=== PATIENT | female | born 1955 | race Two or more races ===

== ENCOUNTER 2018-02-03 15:25 | Emergency (ER) | payer OTHER ==
[~2018-02-03] VITALS: Ht 157.5 cm; Wt 98.4 kg
[~2018-02-03 15:25] MED LIST: ALBUTEROL SULF8.5 GM INH; AUGMENTIN 875-1 EAC1 PO; CITALOPRAM HBR20 M1 PO; ENALAPRIL MALE2.5 MG PO; FLOVENT2 PUFFS INH; GLUCOPHAGE500 MG PO; IBUPROFEN600 MG PO; LEVOTHYROXINE75 MCG ORAL; NORCO 5-325 TA1 EACH ORAL; PRILOSEC10 MG PO; SYNTHROID75 MCG PO
[2018-02-03] MEDS ORDERED: ATORVASTATIN CA20 MG ORAL (15:33)
[2018-02-03 15:41] VITALS: BP 125/70
--- NOTE | 2018-02-03 15:42 | Emergency Room Report ---
History of Present Illness General Chief Complaint: Asthma Source: Patient Present Illness HPI Patient is a 62-year-old female presented after increased difficulty breathing. The patient gradual onset of symptoms. Patient was noted to have increased nonproductive cough.Patient had been noted to have prior history of asthma as well as diabetes. Patient had been doing well inhaler. Patient denies any vomiting or diarrhea. She reports reason traveled to [place]. She denies any leg pain or swelling. Allergies: Coded Allergies: MORPHINE (Verified Allergy, Mild, 08/17/12) Patient History Past Medical History: DM, asthma Last Menstrual Period: 9 yrs ago Reviewed Nursing Documentation: PMH: Agreed; PSxH: Agreed Nursing Documentation-PMH Past Medical History: No History, Except For Hx Cardiac Problems: Yes - hypothyroidism Hx Hypertension: Yes Hx Asthma: Yes Hx Diabetes: Yes Hx Cancer: No Hx Gastrointestinal Problems: Yes - acid reflux Hx Neurological Problems: Yes Hx Headaches: Yes Review of Systems All Other Systems: negative except mentioned in HPI Physical Exam Vital Signs Date Time Temp Pulse Resp B/P (MAP) Pulse Ox O2 Delivery O2 Flow Rate FiO2 02/03/18 15:28 97.9 70 18 120/68 95 Room Air 97.9 General Appearance: well appearing, no apparent distress, alert, GCS 15, obese Head: normocephalic, atraumatic ENT: normal voice, pharyngeal erythema Neck: full range of motion, supple Respiratory: no respiratory distress, speaking full sentences, wheezing Cardiovascular #1: normal inspection, regular rate, rhythm, no edema Gastrointestinal: normal inspection, normal bowel sounds, non tender, soft Musculoskeletal: normal inspection, back normal, no calf tenderness Neurologic: normal inspection, alert, oriented x3, responsive, life skills educator III-XII nml as tested, normal gait Psychiatric: mood/affect normal Skin: no rash Medical Decision Making Diagnostic Impression: Primary Impression: Asthma exacerbation ER Course The patient presented for cough and difficulty breathing.Differential diagnosis included but was not limited to bronchitis, pneumonia,Asthma exacerbation, myocardial infarction pulmonary embolism, pericarditis, asthma, foreign body. Patient has a benign exam and does not appear to require any further imaging or laboratory testing at this time. Patient is given breathing treatment as well as oral steroids. She was noted to have improvement in her symptoms.The patient is advised to follow up with primary care doctor in 1-2 days. Patient is advised to return if any worsening condition or if any changes in status that are concerning. This report is dictated with i[employer]umen film waxer software which may occasionally lead to discrepancies related to use of this software. EKG Diagnostic Results Rate: normal - 66 Rhythm: NSR ST Segments: no acute changes Last Vital Signs Date Time Temp Pulse Resp B/P (MAP) Pulse Ox O2 Delivery O2 Flow Rate FiO2 02/03/18 15:28 97.9 70 18 120/68 95 Room Air 97.9 Status: improved Disposition: HOME, SELF-CARE Condition: Stable Scripts Prednisone* (PREDNISONE*) 20 Mg Tablet 40 MG ORAL DAILY, #10 TAB Prov: Bryan Awan MD 02/03/18 Bryan Awan MD Feb 03, 2018 15:42
[2018-02-03] MEDS ORDERED: Albuterol/Ipratropium 3ml neb HHN ONE (15:45)
[2018-02-03] MEDS ORDERED: PREDNISONE20 MG ORAL (16:24)
[2018-02-03 16:45] VITALS: BP 125/70
== END 2018-02-03 20:34 | disposition home or self-care (01) ==
LOC: EMR 16:05
DX: J45.901 Unspecified asthma with (acute) exacerbation (principal); E11.9 Type 2 diabetes mellitus without complications; E03.9 Hypothyroidism, unspecified; I10 Essential (primary) hypertension; K21.9 Gastro-esophageal reflux disease without esophagitis; Z88.6 Allergy status to analgesic agent; E66.9 Obesity, unspecified; Z68.39 Body mass index [BMI] 39.0-39.9, adult
CPT/HCPCS: 93005; 94640; 94664; 99284; J7512; J7620

== ENCOUNTER 2018-02-10 22:08 | Emergency (ER) | payer OTHER ==
[~2018-02-10] VITALS: Ht 157.5 cm; Wt 98.9 kg
[~2018-02-10 22:08] MED LIST changes: +ATORVASTATIN CA20 MG ORAL; +PREDNISONE20 MG ORAL
--- NOTE | 2018-02-10 22:33 | Emergency Room Report ---
History of Present Illness General Chief Complaint: Upper Respiratory Illness Source: Patient Present Illness HPI Patient had recently returned from [place] about 7 days ago She presented to the ER as she was having continued cough and congestion she now reports increased nasal congestion and continued cough questionable subjective fevers and chills at home Denies any chest pain she was having some left upper back pain with the increased cough denies any vomiting or diarrhea denies any neck pain or photophobia Patient had previous history of asthma is also using her home inhalers Allergies: Coded Allergies: MORPHINE (Verified Allergy, Mild, 08/17/12) Patient History Past Medical History: see triage record Pertinent Family History: none Reviewed Nursing Documentation: PMH: Agreed; PSxH: Agreed Nursing Documentation-PMH Hx Cardiac Problems: Yes - hypothyroidism Hx Hypertension: Yes Hx Asthma: Yes Hx Diabetes: Yes Hx Cancer: No Hx Gastrointestinal Problems: Yes - acid reflux Hx Neurological Problems: Yes Hx Headaches: Yes Review of Systems All Other Systems: negative except mentioned in HPI Physical Exam Vital Signs Date Time Temp Pulse Resp B/P (MAP) Pulse Ox O2 Delivery O2 Flow Rate FiO2 02/10/18 22:12 98.2 75 20 127/69 95 Room Air 98.2 Sp02 EP Interpretation: reviewed, normal General Appearance: well appearing, no apparent distress Head: normocephalic, atraumatic Eyes: bilateral eye PERRL, bilateral eye EOMI ENT: hearing grossly normal, normal pharynx, TMs + canals normal, uvula midline Neck: full range of motion, supple, no meningismus, no bony tend Respiratory: lungs clear, normal breath sounds, no rhonchi, no respiratory distress, no retraction, no accessory muscle use Cardiovascular #1: normal peripheral pulses, regular rate, rhythm, no edema, no gallop, no JVD, no murmur Gastrointestinal: normal bowel sounds, non tender, soft, no mass, no organomegaly, non-distended, no guarding, no hernia, no pulsatile mass, no rebound Genitourinary: no CVA tenderness Musculoskeletal: normal inspection Neurologic: oriented x3, responsive, software licensing analyst III-XII nml as tested, motor strength/ tone normal, sensory intact Psychiatric: mood/affect normal Skin: normal color, no rash, warm/dry, palpation normal Lymphatic: normal inspection, no adenopathy Medical Decision Making Diagnostic Impression: Primary Impression: Atypical pneumonia ER Course Patient is a fairly complex patient with multiple differential to consideration including but not limited to cardiac cardiopulmonary and vascular emergencies Given that the patient's symptoms have been ongoing imaging study was obtained no obvious acute pathology Patient has clinical findings consistent with community-acquired pneumonia is placed on antibiotics and will have close outpatient follow-up Chest X-Ray Diagnostic Results Chest X-Ray Diagnostic Results : Chest X-Ray Ordered: Yes # of Views/Limited/Complete: 1 View Indication: Chest Pain EP Interpretation: Yes Interpretation: no consolidation, no effusion, no pneumothorax Impression: No acute disease Electronically Signed by: Priscilla Mera DO Last Vital Signs Date Time Temp Pulse Resp B/P (MAP) Pulse Ox O2 Delivery O2 Flow Rate FiO2 02/10/18 22:12 98.2 75 20 127/69 95 Room Air 98.2 Status: improved Disposition: HOME, SELF-CARE Condition: Improved Scripts Dextromethorphan Hb/Doxylamine (ROBITUSSIN NIGHTTIME COUGH DM) 237 Ml Liquid 10 ML PO QHS for 5 Days, ML Prov: Priscilla Mera DO 02/10/18 Azithromycin* (ZITHROMAX*) 250 Mg Tablet 250 MG ORAL DAILY, #6 TAB 0 Refills Take two tables once daily for 1 day, then one tablet once daily for 4 days. Prov: Priscilla Mera DO 02/10/18 Referrals: NOT CHOSEN IPA/MD,REFERRING (PCP) Additional Instructions: Patient is provided with the discharge instructions notified to follow up with primary doctor in the next 2-3 days otherwise return to the er with any worsening symptoms. Please note that this report is being documented using [employer] technology. This can lead to erroneous entry secondary to incorrect interpretation by the dictating instrument. Priscilla Mera DO Feb 10, 2018 22:33
[2018-02-10 23:30] VITALS: BP 127/69
[2018-02-10] MEDS ORDERED: ZITHROMAX250 MG ORAL (23:38)
[2018-02-10] MEDS ORDERED: ROBITUSSIN NIG237 ML PO (23:38)
[2018-02-10 23:45] VITALS: BP 127/69
--- NOTE | 2018-02-11 09:28 | Diagnostic Imaging Report ---
Indication: Shortness of breath Technique: One view of the chest Comparison: 10/28/2012 Findings: Band of atelectasis is seen in the left lung. Tiny calcific granuloma is seen in the left mid upper lung. Lungs and pleural spaces are otherwise clear. The heart size is normal Impression: No acute process. Findings as noted
== END 2018-02-10 23:46 | disposition home or self-care (01) ==
LOC: EMR 22:29
DX: J18.9 Pneumonia, unspecified organism (principal); E11.9 Type 2 diabetes mellitus without complications; I10 Essential (primary) hypertension; J45.909 Unspecified asthma, uncomplicated; E03.9 Hypothyroidism, unspecified
CPT/HCPCS: 71045; 99283

== ENCOUNTER 2018-07-23 02:58 | Emergency (ER) | payer OTHER ==
[~2018-07-23] VITALS: Ht 157.5 cm; Wt 99.8 kg
[~2018-07-23 02:58] MED LIST changes: +ROBITUSSIN NIG237 ML PO; +ZITHROMAX250 MG ORAL
--- NOTE | 2018-07-23 03:05 | NUR ---
ED Nurse Note: Patient walk in c/o chest [id number]. Patient reports dizziness and nausea. AO4. NAD. VSS. Attached to monitor. Family at bedside.
[2018-07-23] MEDS ORDERED: Aspirin Baby 81mg ORAL ONE (03:15)
--- NOTE | 2018-07-23 03:30 | NUR ---
ED Nurse Note: IV established. Blood and urine collected; sent down to lab.
[2018-07-23 03:34] LABS: BASOPHILS % (AUTO) 0.8 % (0.0-2.0); HEMATOCRIT 46.2 % (37.0-47.0); HEMOGLOBIN 15.7 G/DL (12.0-16.0); LYMPHOCYTES % (AUTO) 33.3 % (20.0-45.0); MEAN CORPUSCULAR VOLUME 87 FL (80-99); MONOCYTES % (AUTO) 5.3 % (1.0-10.0); NEUTROPHILS % (AUTO) 57.7 % (45.0-75.0); PLATELET COUNT 295 K/UL (150-450); RED CELL DISTRIBUTION WIDTH 12.1 % (11.6-14.8); WHITE BLOOD COUNT 9.2 K/UL (4.8-10.8)
[2018-07-23 03:35] LABS: APPEARANCE,URINE CLEAR; BILIRUBIN, URINE NEGATIVE (NEGATIVE); COLOR,URINE PALE YELLOW; GLUCOSE, URINE (UA) NEGATIVE (NEGATIVE); KETONES,URINE NEGATIVE (NEGATIVE); LEUKOCYTE ESTERASE ,URINE 2+ (NEGATIVE); NITRITE,URINE NEGATIVE (NEGATIVE); PH,URINE 7 (4.5-8.0); PROTEIN,URINE NEGATIVE (NEGATIVE); UROBILINOGEN,URINE NORMAL MG/DL (0.0-1.0)
[2018-07-23 03:46] LABS: ANION GAP 9 mmol/L (5-15); BLOOD UREA NITROGEN 18 mg/dL (7-18); CALCIUM 9.2 MG/DL (8.5-10.1); CARBON DIOXIDE 26 MMOL/L (21-32); CHLORIDE 103 MMOL/L (98-107); CREATININE 0.7 MG/DL (0.55-1.30); SODIUM 138 MMOL/L (136-145)
--- NOTE | 2018-07-23 03:48 | Emergency Room Report ---
History of Present Illness General Chief Complaint: Chest Pain Source: Patient Present Illness HPI This is 63-year-old female with history of high blood pressure and diabetes. She presents with chewing of chest pain. Pain is across her chest. Also felt weak and chills. Also with abdominal pain. [place] nauseous but no vomiting. No diarrhea. Pain is 8 out of 10 pressure-like. Has been ongoing for last 2 days. Denies any other complaint. No radiation. Allergies: Coded Allergies: MORPHINE (Verified Allergy, Mild, 08/17/12) Patient History Past Medical History: see triage record, old chart reviewed, DM, HTN Past Surgical History: other Pertinent Family History: none Social History: Denies: smoking Last Menstrual Period: PASHA Now: No Immunizations: other Reviewed Nursing Documentation: PMH: Agreed; PSxH: Agreed Nursing Documentation-PMH Past Medical History: No History, Except For Hx Cardiac Problems: Yes - hypothyroidism Hx Hypertension: Yes Hx Asthma: Yes Hx Diabetes: Yes Hx Cancer: No Hx Gastrointestinal Problems: Yes - acid reflux Hx Neurological Problems: Yes Hx Headaches: Yes Review of Systems Constitutional: Reports: chills Eye: Denies: eye pain, blurred vision ENT: Denies: ear pain, nose congestion, throat swelling Respiratory: Denies: cough, shortness of breath Cardiovascular: Reports: chest pain; Denies: palpitations Gastrointestinal: Reports: abdominal pain; Denies: diarrhea, nausea, vomiting Musculoskeletal: Denies: back pain, joint pain Skin: Denies: rash Neurological: Denies: headache, numbness Endocrine: Denies: increased thirst, increased urine Hematologic/Lymphatic: Denies: easy bruising All Other Systems: negative except mentioned in HPI Physical Exam Vital Signs Date Time Temp Pulse Resp B/P (MAP) Pulse Ox O2 Delivery O2 Flow Rate FiO2 07/23/18 03:03 97.7 80 16 158/72 96 Room Air vitals with high blood pressure Sp02 EP Interpretation: reviewed, normal General Appearance: well appearing, no apparent distress, alert, obese Head: normocephalic, atraumatic Eyes: bilateral eye PERRL, bilateral eye EOMI ENT: hearing grossly normal, normal pharynx Neck: full range of motion, supple, no meningismus Respiratory: chest non-tender, lungs clear, normal breath sounds Cardiovascular #1: regular rate, rhythm, no murmur Gastrointestinal: normal bowel sounds, non tender, no mass, no organomegaly, no bruit, non-distended Musculoskeletal: back normal, gait/station normal, normal range of motion Psychiatric: mood/affect normal Skin: warm/dry Medical Decision Making Diagnostic Impression: Primary Impression: Chest pain Qualified Codes: R07.9 - Chest pain, unspecified Additional Impression: UTI (urinary tract infection) Qualified Codes: N30.00 - Acute cystitis without hematuria ER Course Patient presents with generalized body pain and chest pain. No evidence of ACS , PE, dissection. Pain been constant for over 2 days. Troponin negative. EKG unremarkable. She fell better after IV fluid and antibiotics. She has a urinary tract infection. Lab Results Impression labs unremarkable EKG Diagnostic Results Rate: normal Rhythm: NSR ST Segments: no acute changes ASA given to the pt in ED: Yes Rhythm Strip Diag. Results Rhythm Strip Time: 03:48 EP Interpretation: yes Rate: 71 Rhythm: NSR, no PVC's, no ectopy Chest X-Ray Diagnostic Results Chest X-Ray Diagnostic Results : Chest X-Ray Ordered: Yes # of Views/Limited/Complete: 1 View Indication: Chest Pain EP Interpretation: Yes Interpretation: no consolidation, no effusion, no pneumothorax, no acute cardiopulmonary disease Impression: No acute disease Electronically Signed by: Yonathan Dutton MD Last Vital Signs Date Time Temp Pulse Resp B/P (MAP) Pulse Ox O2 Delivery O2 Flow Rate FiO2 07/23/18 03:03 97.7 80 16 158/72 96 Room Air Status: improved Disposition: HOME, SELF-CARE Condition: Stable Scripts Cephalexin* (KEFLEX*) 500 Mg Capsule 500 MG ORAL TID, #21 CAP Prov: Yonathan Dutton MD 07/23/18 Referrals: NON PHYSICIAN (PCP) Patient Instructions: Nonspecific Chest Pain Additional Instructions: Follow-up with your DrYeimi in 2-3 days of not better. Return if worse. Yonathan Dutton MD Jul 23, 2018 03:48
[2018-07-23] MEDS ORDERED: cefTRIAXone 1 GM in NS 55 ML IVPB ONE (04:00)
[2018-07-23 04:01] LABS: ALANINE AMINOTRANSFERASE 29 U/L (12-78); ALBUMIN 3.9 G/DL (3.4-5.0); ALBUMIN/GLOBULIN RATIO 1.2 (1.0-2.7); ALKALINE PHOSPHATASE 130 U/L (46-116); ASPARTATE AMINO TRANSFERASE 12 U/L (15-37); BILIRUBIN,TOTAL 0.4 MG/DL (0.2-1.0); CKMB 0.7 NG/ML (0.0-3.6); CREATINE KINASE 58 U/L (26-308)
[2018-07-23 04:11] VITALS: BP 158/72
[2018-07-23] MEDS ORDERED: CEPHALEXIN500 MG ORAL (05:47)
[2018-07-23 05:50] VITALS: BP 128/77
--- NOTE | 2018-07-23 05:50 | NUR ---
ED Nurse Note: Patient cleared for discharge per ERMD. AO4 VSS. Patient given prescriptions and discharge instructions; verbalized understanding. iv and ID band removed. Patient ambulated steady with all personal belongings.
--- NOTE | 2018-07-23 11:54 | Diagnostic Imaging Report ---
Indication: Dyspnea Comparison: 02/10/2018 A single view chest radiograph was obtained. Findings: Cardiomegaly, pulmonary vascular congestion and mild interstitial edema demonstrated. IMPRESSION: CHF
--- NOTE | 2018-07-23 17:57 | Cardiology Report ---
APPROVED REPORT EKG Measurement Heart [id number] Normal sinus rhythm Rightward axis Borderline ECG
== END 2018-07-23 05:50 | disposition home or self-care (01) ==
LOC: EMR 03:26
DX: R07.9 Chest pain, unspecified (principal); N39.0 Urinary tract infection, site not specified; E11.9 Type 2 diabetes mellitus without complications; J45.909 Unspecified asthma, uncomplicated; K21.9 Gastro-esophageal reflux disease without esophagitis; I11.0 Hypertensive heart disease with heart failure; I50.9 Heart failure, unspecified
CPT/HCPCS: 36415; 71045; 80053; 81003; 82550; 82553; 84484; 85025; 87086; 93005; 96361; 96365; 99284; J0696

== ENCOUNTER 2019-01-13 00:30 | Emergency (ER) | payer OTHER ==
[~2019-01-13] VITALS: Ht 157.5 cm; Wt 98.9 kg
[~2019-01-13 00:30] MED LIST changes: +CEPHALEXIN500 MG ORAL
--- NOTE | 2019-01-13 01:31 | NUR ---
ED Nurse Note: PT WALKED IN C/O SORETHROAT, COUGH AND ASTHMA SX X 4 DAYS. NO RESP DISTRESS NOTED AT THIS TIME, RR=18, VSS, LS=CLEAR TO AUSCULTATION AT THIS TIME, NOTED DRY COUGH, WILL CONT MONITOR.
[2019-01-13 01:33] VITALS: BP 148/84
[2019-01-13] MEDS ORDERED: FLUTICASONE-SA1 EAC3 IH (01:38)
[2019-01-13] MEDS ORDERED: PREDNISONE20 MG ORAL (01:38)
--- NOTE | 2019-01-13 01:38 | Emergency Room Report ---
History of Present Illness General Chief Complaint: Upper Respiratory Illness Source: Patient Present Illness HPI 63-year-old female with history of hypertension and asthma. She presents with chief complaint of coughing and shortness of breath. Onset for the last 3 days. She has sore throat and cough. Also with congestion. Had 2 episode of wheezing today. Use her inhaler to help. Out of her Flovent. No nausea no vomiting. No fever chills. Allergies: Coded Allergies: MORPHINE (Verified Allergy, Mild, 08/17/12) Patient History Past Medical History: see triage record, old chart reviewed, HTN, asthma Past Surgical History: none Pertinent Family History: none Social History: Denies: smoking Last Menstrual Period: 7 YEARS Now: No Immunizations: other Reviewed Nursing Documentation: PMH: Agreed; PSxH: Agreed Nursing Documentation-PMH Past Medical History: No History, Except For Hx Hypertension: Yes Hx Asthma: Yes Hx Diabetes: Yes Hx Cancer: No Hx Gastrointestinal Problems: Yes - acid reflux Hx Neurological Problems: Yes Hx Headaches: Yes Review of Systems Eye: Denies: eye pain, blurred vision ENT: Reports: nose congestion, throat pain; Denies: ear pain, throat swelling Respiratory: Reports: cough, shortness of breath Cardiovascular: Denies: chest pain, palpitations Gastrointestinal: Denies: abdominal pain, diarrhea, nausea, vomiting Musculoskeletal: Denies: back pain, joint pain Skin: Denies: rash Neurological: Denies: headache, numbness Endocrine: Denies: increased thirst, increased urine Hematologic/Lymphatic: Denies: easy bruising All Other Systems: negative except mentioned in HPI Physical Exam Vital Signs Date Time Temp Pulse Resp B/P (MAP) Pulse Ox O2 Delivery O2 Flow Rate FiO2 01/13/19 00:38 98.1 72 17 148/84 (105) 94 Room Air Vitals normal Sp02 EP Interpretation: reviewed, normal General Appearance: well appearing, no apparent distress, alert Head: normocephalic, atraumatic Eyes: bilateral eye PERRL, bilateral eye EOMI ENT: hearing grossly normal, normal pharynx Neck: full range of motion, supple, no meningismus Respiratory: chest non-tender, wheezing - Wheezing with expiration Cardiovascular #1: regular rate, rhythm, no murmur Gastrointestinal: normal bowel sounds, non tender, no mass, no organomegaly, no bruit, non-distended Musculoskeletal: back normal, gait/station normal, normal range of motion Psychiatric: mood/affect normal Medical Decision Making Diagnostic Impression: Primary Impression: Upper respiratory symptom Additional Impression: Asthma exacerbation Qualified Codes: J45.21 - Mild intermittent asthma with (acute) exacerbation ER Course Presents with asthma exacerbation. No of pneumonia, ACS, PE to name a few. Wheezing resolved after breathing treatment. Will discharge home. Last Vital Signs Date Time Temp Pulse Resp B/P (MAP) Pulse Ox O2 Delivery O2 Flow Rate FiO2 01/13/19 00:38 98.1 72 17 148/84 (105) 94 Room Air Status: improved Disposition: HOME, SELF-CARE Condition: Stable Scripts Fluticasone Propion/Salmeterol (Fluticasone-Salmeterol 100-50) 1 Each Blst.w.dev 1 EACH IH DAILY, #1 UNIT Prov: Yonathan Dutton MD 01/13/19 Prednisone* (PREDNISONE*) 20 Mg Tablet 40 MG ORAL DAILY, #8 TAB Prov: Yonathan Dutton MD 01/13/19 Patient Instructions: Upper Respiratory Infection, Adult Additional Instructions: Follow up with your doctor in 7 days. Return if symptoms worsen. Yonathan Dutton MD Jan 13, 2019 01:38
--- NOTE | 2019-01-13 01:38 | NUR ---
ED Nurse Note: RT AT THE BEDSIDE FOR BREATHING TX.
[2019-01-13] MEDS ORDERED: Albuterol/Ipratropium 3ml neb HHN ONE (01:45)
--- NOTE | 2019-01-13 01:57 | NUR ---
ED Nurse Note: PT CLEARED TO BE D/C PER ERMD, PT DISCHARGE AND AFTERCARE INSTRUCTION PROVIDED W/ PRESCRIPTION, PT EDUCATION DONE VIA DISCUSSION AND HANDOUT, PT ADVISED TO FOLLOW UP WITH PCP OR RETURN TO ED IF CHANGES IN CONDITION, VSS, AMBULATORY W/STEADY GAIT, LEFT W/ ALL BELONGINGS ACCOMPANIED BY SON, PT REPORTS RELIEF AFTER BREATHING TX.
[2019-01-13 01:58] VITALS: BP 138/75
== END 2019-01-13 01:58 | disposition home or self-care (01) ==
LOC: EMR 01:30
DX: J06.9 Acute upper respiratory infection, unspecified (principal); J45.21 Mild intermittent asthma with (acute) exacerbation; Z88.6 Allergy status to analgesic agent; I10 Essential (primary) hypertension; K21.9 Gastro-esophageal reflux disease without esophagitis; E11.9 Type 2 diabetes mellitus without complications
CPT/HCPCS: 94640; 94664; 99283; J7620

== ENCOUNTER 2019-08-24 14:06 | Emergency (ER) | payer MEDICAID, OTHER ==
[~2019-08-24] VITALS: Ht 157.5 cm; Wt 81.6 kg
[~2019-08-24 14:06] MED LIST changes: +FLUTICASONE-SA1 EAC3 IH
--- NOTE | 2019-08-24 14:10 | NUR ---
ED Nurse Note: pt brought in by ambulance from home due to abdominal pain with nausea, denies vomiting and diarrhea. pt aaox4, calm and cooperative. no respiratory or cardiac distress noted. ERMD by bedside. upon arrival blood glucose of 129.
[2019-08-24] MEDS ORDERED: Mylanta II UD 30ml ORAL ONE (14:30)
[2019-08-24] MEDS ORDERED: Lidocaine 2% Visc 15ml soln ORAL ONE (14:30)
[2019-08-24 14:54] LABS: BASOPHILS % (AUTO) 0.9 % (0.0-2.0); EOSINOPHILS % (AUTO) 3.2 % (0.0-3.0); HEMATOCRIT 44.1 % (37.0-47.0); HEMOGLOBIN 15.1 G/DL (12.0-16.0); LYMPHOCYTES % (AUTO) 29.5 % (20.0-45.0); MEAN CORPUSCULAR VOLUME 87 FL (80-99); MONOCYTES % (AUTO) 3.8 % (1.0-10.0); NEUTROPHILS % (AUTO) 62.6 % (45.0-75.0); PLATELET COUNT 297 K/UL (150-450); RED BLOOD COUNT 5.09 M/UL (4.20-5.40); RED CELL DISTRIBUTION WIDTH 12.1 % (11.6-14.8); WHITE BLOOD COUNT 8.5 K/UL (4.8-10.8)
--- NOTE | 2019-08-24 14:54 | NUR ---
ED Nurse Note: pt going to CT in stable condition.
[2019-08-24 14:55] VITALS: BP 145/85
[2019-08-24 14:56] LABS: APPEARANCE,URINE CLEAR; BILIRUBIN, URINE NEGATIVE (NEGATIVE); COLOR,URINE PALE YELLOW; GLUCOSE, URINE (UA) NEGATIVE (NEGATIVE); KETONES,URINE NEGATIVE (NEGATIVE); LEUKOCYTE ESTERASE ,URINE 2+ (NEGATIVE); NITRITE,URINE NEGATIVE (NEGATIVE); PH,URINE 7 (4.5-8.0); PROTEIN,URINE NEGATIVE (NEGATIVE); UROBILINOGEN,URINE NORMAL MG/DL (0.0-1.0)
--- NOTE | 2019-08-24 15:00 | Emergency Room Report ---
History of Present Illness General Chief Complaint: Abdominal Pain Source: Patient, Family Member Present Illness HPI This patient states that she has a history of severe gastritis. She is on a strict diet and is taking an oral PPI. She states that this morning she had developed some lightheadedness and a numbness sensation in her body and then shortly thereafter developed some epigastric pain. She states that at this time the pain is almost resolved and is 1 of 10 on a pain scale. She also felt lightheaded and was concerned she may pass out today. She states that when she would move or stand up she would feel very lightheaded. She denies cough or congestion. She denies fever or chills. She has had some nausea. She has a history of asthma and did use her inhaler yesterday. She has no other complaints. Allergies: Coded Allergies: MORPHINE (Verified Allergy, Mild, 08/17/12) Patient History Past Medical History: see triage record, old chart reviewed, DM, HTN, asthma, GERD Social History: Denies: smoking, alcohol use, drug use Reviewed Nursing Documentation: PMH: Agreed; PSxH: Agreed Nursing Documentation-PMH Past Medical History: No History, Except For Hx Hypertension: Yes Hx Asthma: Yes Hx Diabetes: Yes Hx Cancer: No Hx Gastrointestinal Problems: Yes - acid reflux Hx Neurological Problems: Yes Hx Headaches: Yes Review of Systems All Other Systems: negative except mentioned in HPI Physical Exam Vital Signs Date Time Temp Pulse Resp B/P (MAP) Pulse Ox O2 Delivery O2 Flow Rate FiO2 08/24/19 14:03 98.4 96 20 192/104 (133) 99 Room Air Sp02 EP Interpretation: reviewed, normal General Appearance: no apparent distress, alert, GCS 15, non-toxic Head: normocephalic, atraumatic Eyes: bilateral eye normal inspection, bilateral eye PERRL ENT: hearing grossly normal, normal pharynx, no angioedema, normal voice Neck: full range of motion, supple/symm/no masses Respiratory: chest non-tender, lungs clear, normal breath sounds, no respiratory distress, no retraction, no accessory muscle use, speaking full sentences Cardiovascular #1: regular rate, rhythm, no edema Gastrointestinal: normal bowel sounds, non tender, soft, non-distended, no guarding, no rebound Rectal: deferred Musculoskeletal: back normal, normal range of motion, non-tender Neurologic: alert, motor strength/tone normal, oriented x3, sensory intact, responsive, speech normal Psychiatric: judgement/insight normal, memory normal, mood/affect normal, no suicidal/homicidal ideation Skin: no rash, normal color Medical Decision Making Diagnostic Impression: Primary Impression: Gastritis Additional Impression: Pre-syncope ER Course This patient has a clinical presentation consistent with gastritis. The location of the pain and history and physical examination is consistent with this. I considered other concerning differentials, to include appendicitis, cholelithiasis, cholecystitis, pancreatitis, perforated viscus, aortic aneurysm , and pyelonephritis to name a few. However, laboratory workup in combination with medical and surgical history and physical exam makes these unlikely at this time. I did educate the patient on close return precautions and followup instructions. Laboratory Tests Test 08/24/19 14:45 White Blood Count 8.5 K/UL (4.8-10.8) Red Blood Count 5.09 M/UL (4.20-5.40) Hemoglobin 15.1 G/DL (12.0-16.0) Hematocrit 44.1 % (37.0-47.0) Mean Corpuscular Volume 87 FL (80-99) Mean Corpuscular Hemoglobin 29.6 PG (27.0-31.0) Mean Corpuscular Hemoglobin Concent 34.2 G/DL (32.0-36.0) Red Cell Distribution Width 12.1 % (11.6-14.8) Platelet Count 297 K/UL (150-450) Mean Platelet Volume 5.9 FL (6.5-10.1) L Neutrophils (%) (Auto) 62.6 % (45.0-75.0) Lymphocytes (%) (Auto) 29.5 % (20.0-45.0) Monocytes (%) (Auto) 3.8 % (1.0-10.0) Eosinophils (%) (Auto) 3.2 % (0.0-3.0) H Basophils (%) (Auto) 0.9 % (0.0-2.0) Urine Color Pale yellow Urine Appearance Clear Urine pH 7 (4.5-8.0) Urine Specific [place] 1.005 (1.005-1.035) Urine Protein Negative (NEGATIVE) Urine Glucose (UA) Negative (NEGATIVE) Urine Ketones Negative (NEGATIVE) Urine Blood Negative (NEGATIVE) Urine Nitrite Negative (NEGATIVE) Urine Bilirubin Negative (NEGATIVE) Urine Urobilinogen Normal MG/DL (0.0-1.0) Urine Leukocyte Esterase 2+ (NEGATIVE) H Urine RBC 0-2 /HPF (0 - 2) Urine WBC 0-2 /HPF (0 - 2) Urine Squamous Epithelial Cells Few /LPF (NONE/OCC) Urine Bacteria Occasional /HPF (NONE) Sodium Level 143 MMOL/L (136-145) Potassium Level 3.9 MMOL/L (3.5-5.1) Chloride Level 107 MMOL/L (98-107) Carbon Dioxide Level 24 MMOL/L (21-32) Anion Gap 12 mmol/L (5-15) Blood Urea Nitrogen 12 mg/dL (7-18) Creatinine 0.7 MG/DL (0.55-1.30) Estimate Glomerular Filtration Rate > 60 mL/min (>60) Glucose Level 124 MG/DL (74-106) H Calcium Level 9.2 MG/DL (8.5-10.1) Total Bilirubin 0.3 MG/DL (0.2-1.0) Aspartate Amino Transferase (AST) 27 U/L (15-37) Alanine Aminotransferase (ALT) 56 U/L (12-78) Alkaline Phosphatase 117 U/L (46-116) H Troponin I 0.000 ng/mL (0.000-0.056) Total Protein 7.3 G/DL (6.4-8.2) Albumin 3.7 G/DL (3.4-5.0) Globulin 3.6 g/dL Albumin/Globulin Ratio 1.0 (1.0-2.7) Lipase 92 U/L (73-393) EKG Diagnostic Results Rate: normal Rhythm: NSR ST Segments: no acute changes Rhythm Strip Diag. Results EP Interpretation: yes Rate: 70's Rhythm: NSR, no PVC's, no ectopy Chest X-Ray Diagnostic Results Chest X-Ray Diagnostic Results : Chest X-Ray Ordered: Yes # of Views/Limited/Complete: 1 View Indication: Other EP Interpretation: Yes Interpretation: no consolidation, no effusion, no pneumothorax, no acute cardiopulmonary disease Impression: No acute disease Electronically Signed by: Amanda Walker DO CT/MRI/US Diagnostic Results CT/MRI/US Diagnostic Results : Imaging Test Ordered: CT head Impression No acute findings. Specifically no intracranial bleed, mass effect or edema. See official report. Last Vital Signs Date Time Temp Pulse Resp B/P (MAP) Pulse Ox O2 Delivery O2 Flow Rate FiO2 08/24/19 14:03 98.4 96 20 192/104 (133) 99 Room Air Status: improved Disposition: HOME, SELF-CARE Condition: Improved Referrals: NOT CHOSEN IPA/,REFERRING (PCP) Amanda Walker DO Aug 24, 2019 15:00
[2019-08-24 15:10] LABS: ANION GAP 12 mmol/L (5-15); BLOOD UREA NITROGEN 12 mg/dL (7-18); CALCIUM 9.2 MG/DL (8.5-10.1); CARBON DIOXIDE 24 MMOL/L (21-32); CHLORIDE 107 MMOL/L (98-107); CREATININE 0.7 MG/DL (0.55-1.30); POTASSIUM 3.9 MMOL/L (3.5-5.1); SODIUM 143 MMOL/L (136-145)
[2019-08-24 15:15] LABS: ALANINE AMINOTRANSFERASE 56 U/L (12-78); ALBUMIN 3.7 G/DL (3.4-5.0); ALKALINE PHOSPHATASE 117 U/L (46-116); ASPARTATE AMINO TRANSFERASE 27 U/L (15-37); BILIRUBIN,TOTAL 0.3 MG/DL (0.2-1.0)
--- NOTE | 2019-08-24 15:27 | Diagnostic Imaging Report ---
Indication: Lightheaded syncope dizzy Technique: Contiguous 5 mm thick transaxial imaging of the head obtained in a Siem[employer] Sensation [address] scanner. Soft tissue and bone windows generated. Automatic Exposure Control was utilized. Total Dose length Product (DLP): 992.1mGycm CT Dose Index Volume (CTDIvol): 53.4 mGy Comparison: 09/16/2012 Findings: The size and configuration of the cortical sulci, basal cisterns, and ventricles are within normal limits for age. There is no mass effect, midline shift, or edema identified. There is no evidence of acute hemorrhage or abnormal intra-axial or extra-axial fluid collections. The bones and soft tissues are unremarkable. Impression: No mass effect, edema or acute bleed. The CT scanner at [facility] is accredited by the [employer] and the scans are performed using dose optimization techniques as appropriate to a performed exam including Automatic Exposure control.
--- NOTE | 2019-08-24 15:28 | Diagnostic Imaging Report ---
Indication: Dyspnea Comparison: 07/23/2018 A single view chest radiograph was obtained. Findings: Cardiomediastinal appearance is within normal limits for age. The lungs are clear. Pulmonary vascularity is appropriate. The diaphragmatic contour is smooth and costophrenic angles are sharp. No pleural effusions are identified. The bones are unremarkable. Impression: No acute findings
[2019-08-24 17:37] VITALS: BP 139/86
--- NOTE | 2019-08-24 17:37 | NUR ---
ER DISCHARGE NOTE: Patient cleared to be discharged per ERMD, pt is aaox4, VSS. pt and son given discharge instructions. pt and son able to verbalize understanding. pt id band and iv site removed without complications. pt ambulating with steady gait. pt took all belongings. pt and son made aware to stop by registration before leaving.
== END 2019-08-24 17:35 | disposition home or self-care (01) ==
LOC: EDBD 14:06 → EMR 14:21
DX: K29.70 Gastritis, unspecified, without bleeding (principal); R55 Syncope and collapse; E11.9 Type 2 diabetes mellitus without complications; I10 Essential (primary) hypertension; K21.9 Gastro-esophageal reflux disease without esophagitis; Z88.6 Allergy status to analgesic agent
CPT/HCPCS: 36415; 70450; 71045; 80053; 81003; 82962; 83690; 84484; 85025; 93005; 96361; 96374; 96375; J2405; J7030; S0028; Z7502; 99284